=== PATIENT | female | born 1990 | race African-American/Black ===

== ENCOUNTER 2023-04-09 07:17 | Outpatient (CLI) | payer OTHER ==
[2023-04-09] MEDS ORDERED: Iopamidol-370 76% 500 ML MDV (1 ML CHARGE) ONE (09:31)
== END 2023-04-09 07:18 | disposition home or self-care (01) ==
LOC: BICCT 07:17
PROVIDERS: ATTEND Nurse Practitioner Family
DX: R19.04 Left lower quadrant abdominal swelling, mass and lump (principal)
CPT/HCPCS: 74177; Q9967